=== PATIENT | female | born 1995 | race African-American/Black ===

== ENCOUNTER 2023-03-19 18:16 | Emergency (ER) | payer SELFPAY ==
[~2023-03-19] VITALS: Ht 160 cm; Wt 61.0 kg
[2023-03-19 18:19] VITALS: BP 150/82; PULSE 108; RESP 22; TEMP 98.6; O2SAT 99
== END 2023-03-19 18:58 | disposition left against medical advice (07) ==
LOC: ER 18:16
DX: R06.02 Shortness of breath (principal); Z53.21 Procedure and treatment not carried out due to patient leaving prior to being seen by health care provider
CPT/HCPCS: 99281